=== PATIENT | female | born 1990 | race Caucasian/White ===

== ENCOUNTER 2016-10-20 06:47 | Emergency (ER) | payer OTHER ==
--- NOTE | 2016-10-20 08:28 | ED NURSING NOTES ---
Clinical Report - Nurses Located Within [facility] [address] [place] [address] 10/20/2016 6:51 Patient: MERISSA ANDERSEN TRIAGE Triage time 06:48. Acuity: LEVEL 3. Chief Complaint: CHEST PAIN and UPPER ABDOMINAL PAIN and SHORTNESS OF BREATH. Alert. No acute distress. --06:56 Gloria Blank R.N. 06:51 10/20/16. BP: 139/70. HR: 75. RR: 16. O2 saturation: 95% on room air. Temp: 97.4 F (oral). Pain level now: 2/10. Pain level at maximum: 10/10. --06:56 Gloria Blank R.N. Weight: 113.3 kg stated. Height/Length: 64 inches Per Patient. BMI: 42.9. --06:53 Gloria Blank R.N. Medications Labetalol HCl Oral (Tablet 100 mg) 1 tablet, 2x a day. --06:54 Gloria Blank R.N. Omeprazole Oral 20 mg, 2x a day. --06:54 Gloria Blank R.N. Oral. --06:54 Gloria Blank R.N. Iron Oral. --06:54 Gloria Blank R.N. Allergies No Known Drug Allergy. --06:54 Gloria Blank R.N. History Arrived by private vehicle. Historian: patient. Accompanied by family. Primary physician ([facility]). This started today. Onset. (about 1 1/2 hours ago). 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 PAST MEDICAL HX: Immunizations: up-to-date. SOCIAL HX: Never smoker. Occasional alcohol use. No drug use. NUTRITIONAL RISK ASSESSMENT: The nutritional risk assessment revealed no deficiencies. FUNCTIONAL ASSESSMENT: Functional assessment: no impairments noted. --06:56 Gloria Blank R.N. PROBLEMS: Gestational hypertention. Gastroesophageal Reflux Disease. --06:55 Gloria Blank R.N. Interventions ID band on patient. To treatment room. --06:56 Gloria Blank R.N. PHYSICAL ASSESSMENT Ambulatory to room. Patient gowned. GENERAL / NEURO / PSYCH: Alert. Oriented X 4. Appears in no acute distress. RESPIRATORY: Respirations not labored. CVS: Capillary refill less than 2 seconds. SKIN: Skin is warm and dry. --06:56 Gloria Blank R.N. NURSING PROGRESS NOTES Head of bed elevated. Two patient identifiers checked. Call light placed in reach. Side rails up x 1. Bed placed in lowest position. Brakes of bed on. --06:56 Gloria Blank R.N. EKG time: (656). EKG was performed by a tech and shown to the ED physician. --06:56 Gloria Blank R.N. security monitor, pulse oximeter and NIBP monitor placed on patient; monitor alarms on. --06:56 Gloria Blank R.N. 07:20 10/20/2016 Site #1 started via IV in the left antecubital space with an 20g angiocath; one attempt. Blood drawn: rainbow set. Labeled in the presence of the patient and sent to the lab. Saline lock flushed with 10 mL saline (STARTED BY DIOGO RN). --07:45 Clarita iRvera R.N. DISPOSITION / DISCHARGE 08:47 10/20/2016 Site #1 removed upon discharge. Catheter intact. Bandaid applied. --08:48 Clarita Rivera R.N. Departure time: 08:50. Condition at departure: improved. No learning barriers present. Discharge instructions provided and reviewed with the patient and spouse. Patient and spouse verbalized understanding. Written instructions provided in Samoan. The patient was discharged by the physician. She was discharged home and accompanied by spouse. She left the Emergency Department ambulatory and via private vehicle. Spouse driving. FALL RISK ASSESSMENT: Fall risk assessment completed. No fall risk identified. --08:50 Clarita Rivera R.N. 08:47 10/20/16. BP: 140/72. HR: 76. RR: 16. O2 saturation: 96%. Temp: 96.4 F. Pain level now: 0/10. --08:50 Clarita Rivera R.N. Locked/Released at 10/20/2016 19:12 by Clarita Rivera R.N.
--- NOTE | 2016-10-20 08:28 | ED ORDER SUMMARY ---
..... Patient: MERISSA ANDERSEN OrderSheet [facility] VisitID: [id number] [place] [address] 25y, F Registration Date/Time: 10/20/2016 ORDER SHEET Weight: 113.3 kg (stated) Allergies: No Known Drug Allergy GENERAL ORDERS: CBC w Diff Urgent (07:37 10/20/2016 Jane MAX) (Ack 7:39 Diana) (7:44 JBest R.N.) CMP Urgent (07:37 10/20/2016 Jane MAX) (Ack 7:39 Diana) (7:44 JBest R.N.) Lipase Urgent (07:37 10/20/2016 Jane MAX) (Ack 7:39 Diana) (7:44 JBest R.N.) MEDICATION ORDERS: IV FLUIDS: ORDER SHEET NOTES: [Electronically signed by Clarita Rivera R.N. (19:12 10/20/2016)] [Electronically signed by Alia Paul MD (09:58 10/27/2016)] [Electronically locked/signed by Clarita Rivera R.N. (19:12 10/20/2016)]
--- NOTE | 2016-10-20 08:28 | ED ORDER SUMMARY ---
..... Patient: MERISSA ANDERSEN OrderSheet [facility] VisitID: [id number] [place] [address] 25y, F Registration Date/Time: 10/20/2016 ORDER SHEET Weight: 113.3 kg (stated) Allergies: No Known Drug Allergy GENERAL ORDERS: CBC w Diff Urgent (07:37 10/20/2016 Jane MAX) (Ack 7:39 Diana) (7:44 JBest R.N.) CMP Urgent (07:37 10/20/2016 Jane MAX) (Ack 7:39 Diana) (7:44 JBest R.N.) Lipase Urgent (07:37 10/20/2016 Jane MAX) (Ack 7:39 Diana) (7:44 JBest R.N.) MEDICATION ORDERS: IV FLUIDS: ORDER SHEET NOTES: [Electronically signed by Clarita Rivera R.N. (19:12 10/20/2016)] [Electronically signed by Alia Paul MD (09:58 10/27/2016)] [Electronically locked/signed by Clarita Rivera R.N. (19:12 10/20/2016)]
--- NOTE | 2016-10-20 08:28 | ED CLINICAL REPORT ---
Clinical Report - Physicians/Mid Levels [facility] [address] [place] [address] 10/20/2016 6:51 Patient: MERISSA ANDERSEN Time Seen: 07:18. Arrived- By private vehicle. Historian- patient. HISTORY OF PRESENT ILLNESS Chief Complaint: ABDOMINAL PAIN and CHEST PAIN. At its maximum, severity described as moderate. When seen in the E.D., it was gone. Modifying factors- (stretching out worsened; nothing relieved). It is described as "pain". No radiation. It is described as located in the central chest and the epigastric area. This started today and is still present. The patient has had nausea. No loss of appetite, vomiting or diarrhea. Similar symptoms previously: Occasionally. Recent medical care: The patient was seen recently at another facility in a clinic. ( Pt is 3weeks post-.). REVIEW OF SYSTEMS No constipation, black stools, hematemesis, difficulty with urination or pain with urination. No urinary frequency, bloody stools, fever, headache or sore throat. No blurred vision, difficulty breathing, cough, joint pain or skin rash. No chills or back pain. The patient has had chest pain. All systems otherwise negative, except as recorded above. PAST HISTORY Problems: Gestational hypertention. Gastroesophageal Reflux Disease. Additional Surgeries: . Medications: Iron Oral. Oral. Omeprazole Oral 20 mg, 2x a day. Labetalol HCl Oral (Tablet 100 mg) 1 tablet, 2x a day. Allergies: No Known Drug Allergy. SOCIAL HISTORY Never smoker. Occasional alcohol use. No drug use. ADDITIONAL NOTES The nursing notes have been reviewed. PHYSICAL EXAM Vital Signs: 10/20/2016 06:51 BP: 139/70. HR: 75. RR: 16. O2 saturation: 95%. Temp: 97.4 F. Pain level now: 2/10. Have been reviewed and appear to be correct. Appearance: Alert. Oriented X3. No acute distress. Eyes: Pupils equal, round and reactive to light. Eyes normal inspection. ENT: Nose normal. Neck: Normal inspection. CVS: Normal heart rate and rhythm. Heart sounds normal. Pulses normal. Respiratory: No respiratory distress. Breath sounds normal. Abdomen: Soft and nontender. Back: Normal inspection. No CVA tenderness. Skin: Skin warm and dry. Normal skin color. No rash. Normal skin turgor. Extremities: Extremities exhibit normal ROM. No lower extremity edema. Neuro: Oriented X 3. No motor deficit. No sensory deficit. LABS, X-RAYS, AND EKG EKG: EKG time: (0657). No acute process. No acute ischemia. Normal sinus rhythm. Rate: 73. Normal P waves. Normal [place]. Incomplete RBBB. Normal axis. Normal ST and T waves, QT and QTc. Prior EKG unavailable. The study has been interpreted contemporaneously by me. The study has been independently viewed by me. The EKG appears to be a good tracing. I agree with and confirm the computer reading of the EKG. Laboratory Tests: CBC w Diff: (TOM: 10/20/2016 07:00) ( MsgRcvd 10/20/2016 08:22) Final results Test Result Flag Units (Reference) WHITE BLOOD COUNT 13.4 H K/uL (4.5-11.5) MANUAL DIFFERENTIAL TO FOLLOW. RED BLOOD COUNT 4.60 M/uL (4.00-5.20) HEMOGLOBIN 12.0 gm/dL (12.0-16.0) HEMATOCRIT 37.3 % (36.0-46.0) MEAN CELL VOLUME 81 fL (80-100) MEAN CORPUSCULAR HGB 26 pg (26-34) MEAN CORPUSCULAR HGB CONC 32 g/dL (31-37) RED CELL DISTRIBUTION WIDTH 13.9 % (11.6-14.8) PLATELET COUNT 336 K/uL (150-400) POLY % 57 % (50-75) BAND % 1 % (0-8) LYMPH 39 % (25-40) MONO 2 L % (3-14) EOSINOPHIL % 1 % (0-4) BASOPHIL % 0 % (0-2) METAMYELOCYTE % 0 % (0-1) MYELOCYTE 0 % (0-1) OTHER CELL TYPE 0 RBC MORPHOLOGY NORMAL OCT COMMENT . ATYPICAL LYMPHOCYTES CMP: (TOM: 10/20/2016 07:00) ( MsgRcvd 10/20/2016 08:05) Final results Test Result Flag Units (Reference) GLUCOSE 101 mg/dL (70-110) BUN 9 mg/dL (7-18) CREATININE 0.8 mg/dL (0.6-1.3) Estimated GFR >60 mL/min Estimated GFR- >60 mL/min Note: Persistent reduction over 3 months in eGFR<60 mL/min/1.73 m2 defines CKD. Patients with eGFR values>=60 mL/min/1.73 m2 may also have CKD if evidence ofpersistent proteinuria. Additional information may be foundat www.kidney.org. SODIUM 139 mmol/L (136-145) POTASSIUM 4.0 mmol/L (3.5-5.1) CHLORIDE 102 mmol/L (98-107) CARBON DIOXIDE 26 mmol/L (21-32) CALCIUM 9.6 mg/dL (8.5-10.1) TOTAL PROTEIN 8.4 H g/dL (6.4-8.2) ALBUMIN 4.0 g/dL (3.3-5.0) BILIRUBIN, TOTAL 0.3 mg/dL (0.0-1.0) ALKALINE PHOSPHATASE 128 H U/L (46-116) AST (SGOT) 46 H U/L (15-37) ALT (SGPT) 53 U/L (12-78) LIPASE 104 U/L (73-393) . Pulse Oximetry: 10/20/2016 06:51 O2 saturation: 95%. (FIO2 - room air). Interpretation: normal. PROGRESS AND PROCEDURES Course of Care: PT's sx had resolved upon arrival in the ED, and she declined medication. Labs and EKG were unremarkable. No emergent condition identified. Patient counseled in person regarding the patient's stable condition, test results, diagnosis and need for follow-up. Concerns were addressed. Old medical records reviewed. Disposition: Discharged. Condition: stable. CLINICAL IMPRESSION Acute epigastric abdominal pain. Chest pain .12 lead EKG performed. No precordial pain. INSTRUCTIONS Drink plenty of fluids. (Your labs and EKG look great. There is no sign of a serious cause of your pain.). Warnings: GENERAL WARNINGS: Return or contact your physician immediately if your condition worsens or changes unexpectedly, if not improving as expected, or if other problems arise. Your Current Medications: CONTINUE TAKING THE FOLLOWING MEDICATIONS: Iron Oral. Labetalol HCl Oral : Tablet 100 mg, 1 tablet 2x a day. Omeprazole Oral : 20 mg 2x a day. Oral. Follow-up: Follow up with your doctor in three days if not better. Understanding of the discharge instructions verbalized by patient. (Electronically signed by Alia Paul MD 10/27/2016 9:58)
--- NOTE | 2016-10-20 08:28 | ED NURSING NOTES ---
Clinical Report - Nurses [facility] [address] [place] [address] 10/20/2016 6:51 Patient: MERISSA ANDERSEN TRIAGE Triage time 06:48. Acuity: LEVEL 3. Chief Complaint: CHEST PAIN and UPPER ABDOMINAL PAIN and SHORTNESS OF BREATH. Alert. No acute distress. --06:56 Gloria Blank R.N. 06:51 10/20/16. BP: 139/70. HR: 75. RR: 16. O2 saturation: 95% on room air. Temp: 97.4 F (oral). Pain level now: 2/10. Pain level at maximum: 10/10. --06:56 Gloria Blank R.N. Weight: 113.3 kg stated. Height/Length: 64 inches Per Patient. BMI: 42.9. --06:53 Gloria Blank R.N. Medications Labetalol HCl Oral (Tablet 100 mg) 1 tablet, 2x a day. --06:54 Gloria Blank R.N. Omeprazole Oral 20 mg, 2x a day. --06:54 Gloria Blank R.N. Oral. --06:54 Gloria Blank R.N. Iron Oral. --06:54 Gloria Blank R.N. Allergies No Known Drug Allergy. --06:54 Gloria Blank R.N. History Arrived by private vehicle. Historian: patient. Accompanied by family. Primary physician ([facility]). This started today. Onset. (about 1 1/2 hours ago). 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 PAST MEDICAL HX: Immunizations: up-to-date. SOCIAL HX: Never smoker. Occasional alcohol use. No drug use. NUTRITIONAL RISK ASSESSMENT: The nutritional risk assessment revealed no deficiencies. FUNCTIONAL ASSESSMENT: Functional assessment: no impairments noted. --06:56 Gloria Blank R.N. PROBLEMS: Gestational hypertention. Gastroesophageal Reflux Disease. --06:55 Gloria Blank R.N. Interventions ID band on patient. To treatment room. --06:56 Gloria Blank R.N. PHYSICAL ASSESSMENT Ambulatory to room. Patient gowned. GENERAL / NEURO / PSYCH: Alert. Oriented X 4. Appears in no acute distress. RESPIRATORY: Respirations not labored. CVS: Capillary refill less than 2 seconds. SKIN: Skin is warm and dry. --06:56 Gloria Blank R.N. NURSING PROGRESS NOTES Head of bed elevated. Two patient identifiers checked. Call light placed in reach. Side rails up x 1. Bed placed in lowest position. Brakes of bed on. --06:56 Gloria Blank R.N. EKG time: (656). EKG was performed by a tech and shown to the ED physician. --06:56 Gloria Blank R.N. 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 --06:56 Gloria Blank R.N. 07:20 10/20/2016 Site #1 started via IV in the left antecubital space with an 20g angiocath; one attempt. Blood drawn: rainbow set. Labeled in the presence of the patient and sent to the lab. Saline lock flushed with 10 mL saline (STARTED BY DIOGO RN). --07:45 Clarita Rivera R.N. DISPOSITION / DISCHARGE 08:47 10/20/2016 Site #1 removed upon discharge. Catheter intact. Bandaid applied. --08:48 Clarita Rivera R.N. Departure time: 08:50. Condition at departure: improved. No learning barriers present. Discharge instructions provided and reviewed with the patient and spouse. Patient and spouse verbalized understanding. Written instructions provided in Mozambican. The patient was discharged by the physician. She was discharged home and accompanied by spouse. She left the Emergency Department ambulatory and via private vehicle. Spouse driving. FALL RISK ASSESSMENT: Fall risk assessment completed. No fall risk identified. --08:50 Clarita Rivera R.N. 08:47 10/20/16. BP: 140/72. HR: 76. RR: 16. O2 saturation: 96%. Temp: 96.4 F. Pain level now: 0/10. --08:50 Clarita Rivera R.N. Locked/Released at 10/20/2016 19:12 by Clarita Rivera R.N.
--- NOTE | 2016-10-27 09:58 | ED MED RECONCILIATION SUMMARY ---
Patient: MERISSA ANDERSEN Medication Reconciliation Report [facility] VisitID: [id number] [address] [place] [address] 25y, F Registration Date/Time: 10/20/2016 Weight: 113.3 kg Height/Length: 64 in. BMI: 42.9 ALLERGIES: No Known Drug Allergy The patient's Home Medications are listed below: CONTINUE TAKING THE FOLLOWING MEDICATIONS: Iron Oral Labetalol HCl Oral (100 mg) 1 tablet, 2x a day Omeprazole Oral 20 mg, 2x a day Oral The source(s) of the original Home Medication information: Not obtained. The following Medications were given to the patient in the Emergency Department: None. The following Medications were prescribed to the patient: None.
--- NOTE | 2016-10-27 09:58 | ED MAR SUMMARY ---
..... Medication Administration Record [facility] [address] [place], [place] [id number] Patient: MERISSA ANDERSEN Visit ID: [id number] 25y, F Weight: 113.3 kg Height/Length: 64 in BMI: 42.9 ALLERGIES: No Known Drug Allergy
--- NOTE | 2016-10-27 09:58 | ED MED RECONCILIATION SUMMARY ---
Patient: MERISSA ANDERSEN Medication Reconciliation Report [facility] VisitID: [id number] [address] [place] [address] 25y, F Registration Date/Time: 10/20/2016 Weight: 113.3 kg Height/Length: 64 in. BMI: 42.9 ALLERGIES: No Known Drug Allergy The patient's Home Medications are listed below: CONTINUE TAKING THE FOLLOWING MEDICATIONS: Iron Oral Labetalol HCl Oral (100 mg) 1 tablet, 2x a day Omeprazole Oral 20 mg, 2x a day Oral The source(s) of the original Home Medication information: Not obtained. The following Medications were given to the patient in the Emergency Department: None. The following Medications were prescribed to the patient: None.
--- NOTE | 2016-10-27 09:58 | ED MAR SUMMARY ---
..... Medication Administration Record [facility] [address] [place], [place] [id number] Patient: MERISSA ANDERSEN Visit ID: [id number] 25y, F Weight: 113.3 kg Height/Length: 64 in BMI: 42.9 ALLERGIES: No Known Drug Allergy
--- NOTE | 2016-10-27 09:58 | ED DISCHARGE INSTRUCTIONS ---
Patient: MERISSA ANDERSEN General Instructions [facility] VisitID: [id number] [place] [address] 25y, F Registration Date/Time: 10/20/2016 Acute epigastric abdominal pain. Chest pain .12 lead EKG performed. No precordial pain. INSTRUCTIONS Drink plenty of fluids. (Your labs and EKG look great. There is no sign of a serious cause of your pain.). Warnings: GENERAL WARNINGS: Return or contact your physician immediately if your condition worsens or changes unexpectedly, if not improving as expected, or if other problems arise. Your Current Medications: CONTINUE TAKING THE FOLLOWING MEDICATIONS: Iron Oral. Labetalol HCl Oral : Tablet 100 mg, 1 tablet 2x a day. Omeprazole Oral : 20 mg 2x a day. Oral. Follow-up: Follow up with your doctor in three days if not better. Understanding of the discharge instructions verbalized by patient. ADDITIONAL INFORMATION Esophageal Spasm The esophagus is a muscular tube that joins your mouth to your stomach. Normal waves of contraction help food move down the esophagus to reach the stomach. Esophageal spasms are abnormal contractions of these muscles. When the muscles are in spasm it may feel like the food is stuck and wont go down. It may cause a feeling of heartburn or a squeezing type of chest pain that can feel just like heart pain (angina). The pain may spread to the neck, arm or back. If you try to swallow more food or liquid during a spasm, it may come back up within seconds. The cause of esophageal spasm is not known but it is more common in people with acid reflux disease (also called "GERD" or "Esophagitis"). Very hot or very cold foods or foods that are not chewed enough before swallowing may trigger an episode. Special tests may be ordered to confirm the diagnosis if there is doubt. Medicine is used to prevent or treat symptoms in most cases. Severe symptoms can be treated with surgery. Home Care: If you are prone to acid reflux and heartburn symptoms, your doctor may prescribe acid-blocking medicine. If not, you can use over the counter medicines as a preventive if you get symptoms often. The following medicines are available without a prescription: Antacids: Neutralize stomach acid. (such as Gaviscon, Mylanta, Tums or Rolaids) Acid-Blockers: Reduce the production of acid in the stomach. (Axid, Pepcid-AC, Tagamet-HB, Zantac, Prilosec-OTC). Learn to recognize if certain foods are causing your spasm and avoid these. Avoid very hot and very cold foods if this is a trigger for you. Eat slowly and chew food well before swallowing. Follow Up with your doctor or as advised by our staff. Get Prompt Medical Attention if any of the following occur: Chest pain or pain in the neck, back, shoulder or arm that does not respond to the treatment recommended Food that feels "stuck" in the esophagus for more than 30 minutes Inability to swallow solid or liquids for more than 30 minutes Symptoms that feel like esophageal spasm but occur with heavy sweating, dizziness, fainting or shortness of breath Change in the usual patterns of your symptoms of esophageal spasm (new pattern of spreading to the neck, back, shoulder or arm; pain that is more severe than usual) You have been given the following additional information: Esophageal Spasm (Electronically signed by Alia Paul MD 10/27/2016 9:58)
== END 2016-10-20 08:44 | disposition home or self-care (01) ==
LOC: ED SRH 06:47
DX: R10.13 Epigastric pain (principal); R07.9 Chest pain, unspecified
CPT/HCPCS: 90100; 91643; 92235; 95059

== ENCOUNTER 2016-12-09 03:26 | Emergency (ER) | payer OTHER ==
--- NOTE | 2016-12-09 05:13 | ED ORDER SUMMARY ---
..... Patient: MERISSA ANDERSEN OrderSheet [facility] VisitID: [id number] [address] [place] [address] 26y, F Registration Date/Time: 12/09/2016 ORDER SHEET Weight: 112.0 kg (stated) Allergies: No Known Drug Allergy GENERAL ORDERS: CBC w Diff Urgent (03:51 12/09/2016 Ky MAX) (Ack 3:56 Yehuda) (6:06 HSoule) CMP Urgent (03:51 12/09/2016 Ky MAX) (Ack 3:56 Yehuda) (6:06 HSoule) UA-Culture if indicated Urgent (03:51 12/09/2016 Ky MAX) (Ack 3:56 Yehuda) (6:06 HSoule) Urine Urgent (03:51 12/09/2016 Ky AMX) (Ack 3:56 Yehuda) (6:06 HSoule) Lipase Urgent (03:51 12/09/2016 Ky MAX) (Ack 3:56 Yehuda) (6:06 HSoule) MEDICATION ORDERS: IV FLUIDS: IV Saline Lock (03:51 12/09/2016 Ky MAX) (3:54 HSoule) Zofran IV 4 mg (NOW) (06:05 12/09/2016 HSoule verbal order read back to Ky MAX) (6:06 HSoule) ORDER SHEET NOTES: [Electronically signed by Aspen Almanza (06:07 12/09/2016)] [Electronically signed by Armando Bhandari MD (10:06 12/11/2016)] [Electronically locked/signed by Aspen Almanza (06:07 12/09/2016)]
--- NOTE | 2016-12-09 05:13 | ED NURSING NOTES ---
Clinical Report - Nurses [facility] [address] [place] [address] 12/09/2016 3:26 Patient: MERISSA ANDERSEN TRIAGE Triage time 03:Dec 09 2016. Acuity: LEVEL 3. Chief Complaint: ABDOMINAL PAIN and VOMITING. SEPSIS SCREEN: Sepsis Screen: negative. Negative (no infection suspected/documented). Heart rate greater than 90. VICK COMA SCORE: [place] Coma Scale: 15- eyes open spontaneously (4); best verbal response- oriented x 4 (5); best motor response- obeys commands (6). --03:34 Aspen Almanza 03:29 12/09/16. BP: 151/74. HR: 101. RR: 18. O2 saturation: 99%. Temp: 98.3 F (oral). Pain level now: 12/30. --03:34 Aspen Almanza. Weight: 112 kg stated. Height/Length: 64 inches Per Patient. BMI: 42.4. --03:33 Aspen Almanza. Medications Omeprazole Oral 20 mg, 2x a day. --03:33 Aspen Almanza Flonase Nasal. --03:33 Aspen Almanza Control Pills. --03:34 Aspen Almanza. Allergies No Known Drug Allergy. --03:34 Aspen Almanza. Medication/allergy information source: the patient. --03:34 Aspen Almanza. History Arrived by private vehicle. Historian: patient. Accompanied by family. Primary physician ([facility]). This started today. ( Patient reports she was here in September and was told that she had esophageal spasm. Tonight she states the pain came on earlier today and has increased. She describes a sharp stabbing pain in her epigastric region that she states, "feels like contractions". She states the pain radiates to the sides of her abdomen.). Last oral intake by patient was (9 pm). PAST MEDICAL HX: Last normal menstrual period- 3 weeks ago. Uses control pills. SOCIAL HX: Never smoker. No alcohol use or drug use. No recent travel. No infectious disease exposure. No known contact with a sick individual. ABUSE ASSESSMENT: No report of abuse. FALL RISK ASSESSMENT: Fall risk assessment completed. No fall risk identified. NUTRITIONAL RISK ASSESSMENT: The nutritional risk assessment revealed no deficiencies. FUNCTIONAL ASSESSMENT: Functional assessment: no impairments noted. LEARNING NEEDS ASSESSMENT: The learning needs assessment revealed no barriers. SKIN INTEGRITY ASSESSMENT: Skin integrity risk assessment completed. No skin integrity risk identified. --03:34 Aspen Almanza. PROBLEMS: Chest Pain. Gestational hypertention. Gastroesophageal Reflux Disease. --03:34 Aspen Almanza Abdominal Pain [RuleOut]. --05:11 Armando Bhandari MD The following entry was modified by Armando Bhandari MD, 05:11 <<STRICKEN ENTRY-- Abdominal Pain. --08:28 Cami Aspen --END STRIKE>>. ADDITIONAL SURGERIES: . --03:34 Aspen Almanza. Interventions ID band on patient. To treatment room. --03:34 Aspen Almanza. PHYSICAL ASSESSMENT Ambulatory to room. GENERAL / NEURO / PSYCH: Alert. Oriented X 4. Appears in pain. RESPIRATORY: Respirations not labored. CVS: Cardiac rhythm: sinus tachycardia; (101). GI / : Abdomen soft. Abdominal tenderness in the right upper quadrant and epigastric area. SKIN: Skin is warm and dry. --03:36 Cami Aspen. NURSING PROGRESS NOTES Pulse oximeter and NIBP monitor placed on patient; monitor alarms on. Patient gowned. Reassurance given to the patient. Two patient identifiers checked. Call light placed in reach. Side rails up x 1. Bed placed in lowest position. Brakes of bed on. Patient ready for evaluation- chart flagged and ED physician notified. --03:36 Cami Aspen Patient ID band checked for patient name and birthdate: patient confirmed. Blood samples drawn from the peripheral IV site by nurse ; labeled in presence of the patient and sent to lab: rainbow set. Additional blood sent to lab. --03:36 Cami Aspen 03:47 12/09/2016 Site #1 started via IV in the left hand with an 20g angiocath, with aseptic technique and good blood return; two attempts. Blood drawn: rainbow set. Labeled in the presence of the patient and sent to the lab. Saline lock flushed with 10 mL saline. --03:47 Sole Chavez 03:50 12/09/2016 Zofran (Ondansetron HCl) IVP 4 mg given over 2 minute(s) via site #1. Allergies verified and confirmed 5 rights. IV patency established. IV site checked: no pain, redness, or swelling. IV flushed thoroughly pre- and post-medication administration. IVP given by RN. --06:06 Aspen Almanza 04:40 12/09/16. BP: 142/60. HR: 80. RR: 20. O2 saturation: 99% on room air. Pain level now: 09/29. --06:07 Aspen Almanza. DISPOSITION / DISCHARGE 05:20 12/09/16. BP: 141/62. HR: 82. RR: 20. O2 saturation: 98% on room air. Temp: 98.6 F (oral). Pain level now: 09/01. --06:04 Aspen Almanza 05:10 12/09/2016 Site #1 removed upon discharge. Catheter intact. Bandaid applied. --06:05 Aspen Almanza 05:30 12/09/16. Condition at departure: stable. The goals identified in the patient's plan of care were met. No learning barriers present. Discharge instructions provided and reviewed with the patient and spouse. Reviewed warnings (Do not drive while on sedative medications). Reviewed medication(s) side effects, precautions, dosing and course information. Prescription(s) given to the patient. Patient and spouse verbalized understanding. Written instructions provided in Vietnamese. ( Follow up with your PCP for next available appointment to have your Gallbladder function assessed. In the mean time, avoid greasy fatty goods. Return to the ER if symptoms worsen. Patient verbalized understanding of instructions and had no additional questions at this time.). The patient was discharged by the physician. She was discharged home and accompanied by spouse. She left the Emergency Department ambulatory and via private vehicle. Spouse driving. FALL RISK ASSESSMENT: Fall risk assessment completed. No fall risk identified. --06:04 Aspen Almanza. Locked/Released at 12/09/2016 6:07 by Aspen Almanza,
--- NOTE | 2016-12-09 05:13 | ED ORDER SUMMARY ---
..... Patient: MERISSA ANDERSEN OrderSheet [facility] VisitID: [id number] [address] [place] [address] 26y, F Registration Date/Time: 12/09/2016 ORDER SHEET Weight: 112.0 kg (stated) Allergies: No Known Drug Allergy GENERAL ORDERS: CBC w Diff Urgent (03:51 12/09/2016 Ky MAX) (Ack 3:56 Yehuda) (6:06 HSoule) CMP Urgent (03:51 12/09/2016 Ky MAX) (Ack 3:56 Yehuda) (6:06 HSoule) UA-Culture if indicated Urgent (03:51 12/09/2016 Ky MAX) (Ack 3:56 Yehuda) (6:06 HSoule) Urine Urgent (03:51 12/09/2016 Ky MAX) (Ack 3:56 Yehuda) (6:06 HSoule) Lipase Urgent (03:51 12/09/2016 Ky MAX) (Ack 3:56 Yehuda) (6:06 HSoule) MEDICATION ORDERS: IV FLUIDS: IV Saline Lock (03:51 12/09/2016 Ky MAX) (3:54 HSoule) Zofran IV 4 mg (NOW) (06:05 12/09/2016 HSoule verbal order read back to Ky MAX) (6:06 HSoule) ORDER SHEET NOTES: [Electronically signed by Aspen Almanza (06:07 12/09/2016)] [Electronically signed by Armando Bhandari MD (10:06 12/11/2016)] [Electronically locked/signed by Aspen Almanza (06:07 12/09/2016)]
--- NOTE | 2016-12-09 05:13 | ED CLINICAL REPORT ---
Clinical Report - Physicians/Mid Levels [facility] [address] [place] [address] 12/09/2016 3:26 Patient: MERISSA ANDERSEN Time Seen: 03:43. Arrived- By private vehicle. Historian- patient. HISTORY OF PRESENT ILLNESS Chief Complaint: ABDOMINAL PAIN. It is described as located in the epigastric area and radiating to the upper back. At its maximum, severity described as 7 / 10. When seen in the E.D., severity described as 2 / 10. Modifying factors- worsened by movement. The patient has had nausea and vomiting. The vomiting has occurred only once. No diarrhea. Similar symptoms previously: Once. ( Lasted a few hours then resolved). REVIEW OF SYSTEMS Last normal menstrual period- 3 weeks ago light. Sexual history - sexually active. Uses control pills. No constipation, black stools, difficulty with urination, pain with urination or urinary frequency. No fever, headache, sore throat, blurred vision or chest pain. No difficulty breathing, cough, joint pain, skin rash or chills. Last bowel movement: today. PAST HISTORY PCP: Dr Ari SINGLETON - [facility] Ops: Csection -. Medications: Control Pills. Flonase Nasal. Omeprazole Oral 20 mg, 2x a day. Allergies: No Known Drug Allergy. ADDITIONAL NOTES The nursing notes have been reviewed. PHYSICAL EXAM Vital Signs: 12/09/2016 03:29 BP: 151/74. HR: 101. RR: 18. O2 saturation: 99%. Temp: 98.3 F. Pain level now: 6/10. Appearance: Alert. No acute distress. Eyes: No scleral icterus. ENT: Pharynx normal. CVS: Heart sounds normal. Respiratory: No respiratory distress. Breath sounds normal. Abdomen: Mild tenderness in the upper abdomen and right upper quadrant (to moderate). Bowel sounds normal. Mass present. No rebound tenderness or guarding. (No inguinal or umbilical hernias). Back: No CVA tenderness. Skin: Skin warm. Normal skin color. No rash. Extremities: Extremities exhibit normal ROM. No lower extremity edema. LABS, X-RAYS, AND EKG Laboratory Tests: UA-Culture if indicated: (TOM: 12/09/2016 04:20) ( [facility] [place] 12/09/2016 04:47) Final results Test Result Flag Units (Reference) URINE COLOR YELLOW URINE APPEARANCE CLEAR URINE GLUCOSE NEGATIVE (NEGATIVE) URINE BILIRUBIN NEGATIVE (NEGATIVE) URINE KETONE NEGATIVE (NEGATIVE) URINE SPECIFIC GRAVITY 1.010 (1.010-1.030) URINE PH 6.0 (5.0-8.0) URINE PROTEIN NEGATIVE (NEGATIVE) URINE UROBILINOGEN 0.2 EU/dL (0.2-1.0) URINE NITRITE NEGATIVE (NEGATIVE) URINE BLOOD NEGATIVE (NEGATIVE) URINE LEUK ESTERASE NEGATIVE (NEGATIVE) URINE RBC NONE SEEN rbc/hpf (0-1) URINE WBC RARE wbc/hpf (0-1) URINE EPITHELIAL CELLS 1-3 EPI/hpf (0-5) URINE BACTERIA TRACE (<1+) (NONE SEEN) URINE COMMENT CULT NOT INDICATED URINE CULTURES ARE SET-UP BASED ON THE FOLLOWING CRITERIA:POSITIVE NITRITEPOSITIVE LEUKOCYTE ESTERASEGREATER THAN 10 WHITE BLOOD CELLSMODERATE (2+) OR GREATER BACTERIA Urine: (TOM: 12/09/2016 04:20) ( [facility] 12/09/2016 04:53) Final results Test Result Flag Units (Reference) URINE NEGATIVE CMP: (TOM: 12/09/2016 03:40) ( [facility] 12/09/2016 04:35) Final results Test Result Flag Units (Reference) GLUCOSE 119 H mg/dL (70-110) BUN 12 mg/dL (7-18) CREATININE 0.7 mg/dL (0.6-1.3) Estimated GFR >60 mL/min Estimated GFR- >60 mL/min Note: Persistent reduction over 3 months in eGFR<60 mL/min/1.73 m2 defines CKD. Patients with eGFR values>=60 mL/min/1.73 m2 may also have CKD if evidence ofpersistent proteinuria. Additional information may be foundat www.kidney.org. SODIUM 142 mmol/L (136-145) POTASSIUM 3.7 mmol/L (3.5-5.1) CHLORIDE 107 mmol/L (98-107) CARBON DIOXIDE 23 mmol/L (21-32) CALCIUM 9.1 mg/dL (8.5-10.1) TOTAL PROTEIN 7.7 g/dL (6.4-8.2) ALBUMIN 3.3 g/dL (3.3-5.0) BILIRUBIN, TOTAL 0.2 mg/dL (0.0-1.0) ALKALINE PHOSPHATASE 135 H U/L (46-116) AST (SGOT) 38 H U/L (15-37) ALT (SGPT) 31 U/L (12-78) LIPASE 110 U/L (73-393) . PROGRESS AND PROCEDURES Course of Care: 05:06 12/09/16. Pain 0/10 05:11 12/09/16. Meds ICG. Disposition: Discharged. Condition: stable. CLINICAL IMPRESSION Acute abdominal pain. Probable biliary colic. INSTRUCTIONS (THIS IS VERY LIKELY A GALL BLADDER ATTACK AVOID FATTY FOODS ASK YOUR DR TO CONSIDER A GALL BLADDER ULTRASOUND). Prescription Medications: Oxycodone/APAP 5 mg/325 mg: take 1-2 tablets orally every 4 hours as needed for pain. Dispense ten (10). No refill. Follow-up: Follow up with your doctor. Understanding of the discharge instructions verbalized. (Electronically signed by Armando Bhandari MD 12/11/2016 10:06)
--- NOTE | 2016-12-09 05:13 | ED CLINICAL REPORT ---
Clinical Report - Physicians/Mid Levels Located [facility] [address] [place] [address] 12/09/2016 3:26 Patient: MERISSA ANDERSEN Time Seen: 03:43. Arrived- By private vehicle. Historian- patient. HISTORY OF PRESENT ILLNESS Chief Complaint: ABDOMINAL PAIN. It is described as located in the epigastric area and radiating to the upper back. At its maximum, severity described as 7 / 10. When seen in the E.D., severity described as 2 / 10. Modifying factors- worsened by movement. The patient has had nausea and vomiting. The vomiting has occurred only once. No diarrhea. Similar symptoms previously: Once. ( Lasted a few hours then resolved). REVIEW OF SYSTEMS Last normal menstrual period- 3 weeks ago light. Sexual history - sexually active. Uses control pills. No constipation, black stools, difficulty with urination, pain with urination or urinary frequency. No fever, headache, sore throat, blurred vision or chest pain. No difficulty breathing, cough, joint pain, skin rash or chills. Last bowel movement: today. PAST HISTORY PCP: Dr Ari SINGLETON - [facility] Ops: Csection -. Medications: Control Pills. Flonase Nasal. Omeprazole Oral 20 mg, 2x a day. Allergies: No Known Drug Allergy. ADDITIONAL NOTES The nursing notes have been reviewed. PHYSICAL EXAM Vital Signs: 12/09/2016 03:29 BP: 151/74. HR: 101. RR: 18. O2 saturation: 99%. Temp: 98.3 F. Pain level now: 6/10. Appearance: Alert. No acute distress. Eyes: No scleral icterus. ENT: Pharynx normal. CVS: Heart sounds normal. Respiratory: No respiratory distress. Breath sounds normal. Abdomen: Mild tenderness in the upper abdomen and right upper quadrant (to moderate). Bowel sounds normal. Mass present. No rebound tenderness or guarding. (No inguinal or umbilical hernias). Back: No CVA tenderness. Skin: Skin warm. Normal skin color. No rash. Extremities: Extremities exhibit normal ROM. No lower extremity edema. LABS, X-RAYS, AND EKG Laboratory Tests: UA-Culture if indicated: (TOM: 12/09/2016 04:20) ( [facility] 12/09/2016 04:47) Final results Test Result Flag Units (Reference) URINE COLOR YELLOW URINE APPEARANCE CLEAR URINE GLUCOSE NEGATIVE (NEGATIVE) URINE BILIRUBIN NEGATIVE (NEGATIVE) URINE KETONE NEGATIVE (NEGATIVE) URINE SPECIFIC GRAVITY 1.010 (1.010-1.030) URINE PH 6.0 (5.0-8.0) URINE PROTEIN NEGATIVE (NEGATIVE) URINE UROBILINOGEN 0.2 EU/dL (0.2-1.0) URINE NITRITE NEGATIVE (NEGATIVE) URINE BLOOD NEGATIVE (NEGATIVE) URINE LEUK ESTERASE NEGATIVE (NEGATIVE) URINE RBC NONE SEEN rbc/hpf (0-1) URINE WBC RARE wbc/hpf (0-1) URINE EPITHELIAL CELLS 1-3 EPI/hpf (0-5) URINE BACTERIA TRACE (<1+) (NONE SEEN) URINE COMMENT CULT NOT INDICATED URINE CULTURES ARE SET-UP BASED ON THE FOLLOWING CRITERIA:POSITIVE NITRITEPOSITIVE LEUKOCYTE ESTERASEGREATER THAN 10 WHITE BLOOD CELLSMODERATE (2+) OR GREATER BACTERIA Urine: (TOM: 12/09/2016 04:20) ( [facility] 12/09/2016 04:53) Final results Test Result Flag Units (Reference) URINE NEGATIVE CMP: (TOM: 12/09/2016 03:40) ( [facility] 12/09/2016 04:35) Final results Test Result Flag Units (Reference) GLUCOSE 119 H mg/dL (70-110) BUN 12 mg/dL (7-18) CREATININE 0.7 mg/dL (0.6-1.3) Estimated GFR >60 mL/min Estimated GFR- >60 mL/min Note: Persistent reduction over 3 months in eGFR<60 mL/min/1.73 m2 defines CKD. Patients with eGFR values>=60 mL/min/1.73 m2 may also have CKD if evidence ofpersistent proteinuria. Additional information may be foundat www.kidney.org. SODIUM 142 mmol/L (136-145) POTASSIUM 3.7 mmol/L (3.5-5.1) CHLORIDE 107 mmol/L (98-107) CARBON DIOXIDE 23 mmol/L (21-32) CALCIUM 9.1 mg/dL (8.5-10.1) TOTAL PROTEIN 7.7 g/dL (6.4-8.2) ALBUMIN 3.3 g/dL (3.3-5.0) BILIRUBIN, TOTAL 0.2 mg/dL (0.0-1.0) ALKALINE PHOSPHATASE 135 H U/L (46-116) AST (SGOT) 38 H U/L (15-37) ALT (SGPT) 31 U/L (12-78) LIPASE 110 U/L (73-393) . PROGRESS AND PROCEDURES Course of Care: 05:06 12/09/16. Pain 0/10 05:11 12/09/16. Meds ICG. Disposition: Discharged. Condition: stable. CLINICAL IMPRESSION Acute abdominal pain. Probable biliary colic. INSTRUCTIONS (THIS IS VERY LIKELY A GALL BLADDER ATTACK AVOID FATTY FOODS ASK YOUR DR TO CONSIDER A GALL BLADDER ULTRASOUND). Prescription Medications: Oxycodone/APAP 5 mg/325 mg: take 1-2 tablets orally every 4 hours as needed for pain. Dispense ten (10). No refill. Follow-up: Follow up with your doctor. Understanding of the discharge instructions verbalized. (Electronically signed by Armando Bhandari MD 12/11/2016 10:06)
--- NOTE | 2016-12-09 05:13 | ED NURSING NOTES ---
Clinical Report - Nurses [facility] [address] [place] [address] 12/09/2016 3:26 Patient: MERISSA ANDERSEN TRIAGE Triage time 03:Dec 09 2016. Acuity: LEVEL 3. Chief Complaint: ABDOMINAL PAIN and VOMITING. SEPSIS SCREEN: Sepsis Screen: negative. Negative (no infection suspected/documented). Heart rate greater than 90. VICK COMA SCORE: [place] Coma Scale: 15- eyes open spontaneously (4); best verbal response- oriented x 4 (5); best motor response- obeys commands (6). --03:34 Aspen Almanza 03:29 12/09/16. BP: 151/74. HR: 101. RR: 18. O2 saturation: 99%. Temp: 98.3 F (oral). Pain level now: 12/30. --03:34 Aspen Almanza. Weight: 112 kg stated. Height/Length: 64 inches Per Patient. BMI: 42.4. --03:33 Aspen Almanza. Medications Omeprazole Oral 20 mg, 2x a day. --03:33 Aspen Almanza Flonase Nasal. --03:33 Aspen Almanza Control Pills. --03:34 Aspen Almanza. Allergies No Known Drug Allergy. --03:34 Aspen Almanza. Medication/allergy information source: the patient. --03:34 Aspen Almanza. History Arrived by private vehicle. Historian: patient. Accompanied by family. Primary physician ([facility]). This started today. ( Patient reports she was here in September and was told that she had esophageal spasm. Tonight she states the pain came on earlier today and has increased. She describes a sharp stabbing pain in her epigastric region that she states, "feels like contractions". She states the pain radiates to the sides of her abdomen.). Last oral intake by patient was (9 pm). PAST MEDICAL HX: Last normal menstrual period- 3 weeks ago. Uses control pills. SOCIAL HX: Never smoker. No alcohol use or drug use. No recent travel. No infectious disease exposure. No known contact with a sick individual. ABUSE ASSESSMENT: No report of abuse. FALL RISK ASSESSMENT: Fall risk assessment completed. No fall risk identified. NUTRITIONAL RISK ASSESSMENT: The nutritional risk assessment revealed no deficiencies. FUNCTIONAL ASSESSMENT: Functional assessment: no impairments noted. LEARNING NEEDS ASSESSMENT: The learning needs assessment revealed no barriers. SKIN INTEGRITY ASSESSMENT: Skin integrity risk assessment completed. No skin integrity risk identified. --03:34 Aspen Almanza. PROBLEMS: Chest Pain. Gestational hypertention. Gastroesophageal Reflux Disease. --03:34 Aspen Almanza Abdominal Pain [RuleOut]. --05:11 Armando Bhandari MD The following entry was modified by Armando Bhandari MD, 05:11 <<STRICKEN ENTRY-- Abdominal Pain. --08:28 Cami Aspen --END STRIKE>>. ADDITIONAL SURGERIES: . --03:34 Aspen Almanza. Interventions ID band on patient. To treatment room. --03:34 Aspen Almanza. PHYSICAL ASSESSMENT Ambulatory to room. GENERAL / NEURO / PSYCH: Alert. Oriented X 4. Appears in pain. RESPIRATORY: Respirations not labored. CVS: Cardiac rhythm: sinus tachycardia; (101). GI / : Abdomen soft. Abdominal tenderness in the right upper quadrant and epigastric area. SKIN: Skin is warm and dry. --03:36 Cami Aspen. NURSING PROGRESS NOTES Pulse oximeter and NIBP monitor placed on patient; monitor alarms on. Patient gowned. Reassurance given to the patient. Two patient identifiers checked. Call light placed in reach. Side rails up x 1. Bed placed in lowest position. Brakes of bed on. Patient ready for evaluation- chart flagged and ED physician notified. --03:36 Cami Aspen Patient ID band checked for patient name and birthdate: patient confirmed. Blood samples drawn from the peripheral IV site by nurse ; labeled in presence of the patient and sent to lab: rainbow set. Additional blood sent to lab. --03:36 Cami Aspen 03:47 12/09/2016 Site #1 started via IV in the left hand with an 20g angiocath, with aseptic technique and good blood return; two attempts. Blood drawn: rainbow set. Labeled in the presence of the patient and sent to the lab. Saline lock flushed with 10 mL saline. --03:47 Sole Chavez 03:50 12/09/2016 Zofran (Ondansetron HCl) IVP 4 mg given over 2 minute(s) via site #1. Allergies verified and confirmed 5 rights. IV patency established. IV site checked: no pain, redness, or swelling. IV flushed thoroughly pre- and post-medication administration. IVP given by RN. --06:06 Aspen Almanza 04:40 12/09/16. BP: 142/60. HR: 80. RR: 20. O2 saturation: 99% on room air. Pain level now: 09/29. --06:07 Aspen Almanza. DISPOSITION / DISCHARGE 05:20 12/09/16. BP: 141/62. HR: 82. RR: 20. O2 saturation: 98% on room air. Temp: 98.6 F (oral). Pain level now: 09/01. --06:04 Aspen Almanza 05:10 12/09/2016 Site #1 removed upon discharge. Catheter intact. Bandaid applied. --06:05 Aspen Almanza 05:30 12/09/16. Condition at departure: stable. The goals identified in the patient's plan of care were met. No learning barriers present. Discharge instructions provided and reviewed with the patient and spouse. Reviewed warnings (Do not drive while on sedative medications). Reviewed medication(s) side effects, precautions, dosing and course information. Prescription(s) given to the patient. Patient and spouse verbalized understanding. Written instructions provided in Faroese. ( Follow up with your PCP for next available appointment to have your Gallbladder function assessed. In the mean time, avoid greasy fatty goods. Return to the ER if symptoms worsen. Patient verbalized understanding of instructions and had no additional questions at this time.). The patient was discharged by the physician. She was discharged home and accompanied by spouse. She left the Emergency Department ambulatory and via private vehicle. Spouse driving. FALL RISK ASSESSMENT: Fall risk assessment completed. No fall risk identified. --06:04 Aspen Almanza. Locked/Released at 12/09/2016 6:07 by Aspen Almanza,
--- NOTE | 2016-12-11 10:06 | ED MAR SUMMARY ---
..... Medication Administration Record [facility] [address] [place] [address] Patient: MERISSA ANDERSEN Visit ID: [id number] 26y, F Weight: 112.0 kg Height/Length: 64 in BMI: 42.4 ALLERGIES: No Known Drug Allergy Given 03:50 12/09/2016 Aspen Almanza, Medication Administered: ZOFRAN [IVP] (ONDANSETRON HCL), Dose: 4 mg IVP over 2 minute(s), Site: #1 left hand. Medication Ordered: Zofran IV 4 mg (NOW).
--- NOTE | 2016-12-11 10:06 | ED MED RECONCILIATION SUMMARY ---
Patient: MERISSA ANDERSEN Medication Reconciliation Report [facility] VisitID: [id number] [address] [place] [address] 26y, F Registration Date/Time: 12/09/2016 Weight: 112.0 kg Height/Length: 64 in. BMI: 42.4 ALLERGIES: No Known Drug Allergy The patient's Home Medications are listed below: THE FOLLOWING MEDICATIONS NEED TO BE RECONCILED: Control Pills Flonase Nasal Omeprazole Oral 20 mg, 2x a day The source(s) of the original Home Medication information: patient The following Medications were given to the patient in the Emergency Department: Zofran [IVP] IVP 4 mg, administered: 12/09/2016 3:50:00 AM The following Medications were prescribed to the patient: Oxycodone/APAP 5 mg/325 mg: take 1-2 tablets orally every 4 hours as needed for pain. Dispense ten (10). No refill. -- Armando Bhandari MD
--- NOTE | 2016-12-11 10:06 | ED MED RECONCILIATION SUMMARY ---
Patient: MERISSA ANDERSEN Medication Reconciliation Report [facility] VisitID: [id number] [address] [place] [address] 26y, F Registration Date/Time: 12/09/2016 Weight: 112.0 kg Height/Length: 64 in. BMI: 42.4 ALLERGIES: No Known Drug Allergy The patient's Home Medications are listed below: THE FOLLOWING MEDICATIONS NEED TO BE RECONCILED: Control Pills Flonase Nasal Omeprazole Oral 20 mg, 2x a day The source(s) of the original Home Medication information: patient The following Medications were given to the patient in the Emergency Department: Zofran [IVP] IVP 4 mg, administered: 12/09/2016 3:50:00 AM The following Medications were prescribed to the patient: Oxycodone/APAP 5 mg/325 mg: take 1-2 tablets orally every 4 hours as needed for pain. Dispense ten (10). No refill. -- Armando Bhandari MD
--- NOTE | 2016-12-11 10:06 | ED DISCHARGE INSTRUCTIONS ---
Patient: MERISSA ANDERSEN General Instructions [facility] VisitID: [id number] [address] [place] [address] 26y, F Registration Date/Time: 12/09/2016 Acute abdominal pain. Probable biliary colic. INSTRUCTIONS (THIS IS VERY LIKELY A GALL BLADDER ATTACK AVOID FATTY FOODS ASK YOUR DR TO CONSIDER A GALL BLADDER ULTRASOUND). Prescription Medications: Oxycodone/APAP 5 mg/325 mg: take 1-2 tablets orally every 4 hours as needed for pain. Dispense ten (10). No refill. Follow-up: Follow up with your doctor. Understanding of the discharge instructions verbalized. ADDITIONAL INFORMATION Possible Gallstone With Biliary Colic [Presumed] Your doctor suspects that your abdominal pain is due to spasm of the gallbladder with gallstones. The gallbladder is a small sack under the liver which stores and releases bile. Bile is a fluid that aids in the digestion of fat. A gallstone may form in this sack and block the flow of bile fluid. This can cause mild to severe cramping pain in the mid or right upper abdomen with nausea and vomiting. To be more certain of the diagnosis, you may need to have an ultrasound, CT-scan or other special test. Home Care: Rest in bed and follow a clear liquid diet until feeling better. If pain or nausea medicine was given to help with your symptoms, take these as directed. Fat in your diet makes the gallbladder contract and may cause increased pain. Therefore, avoid fat in your diet over the next two days and follow a low-fat diet after that. If you are overweight, a low fat diet will help you lose weight. Follow Up if a test was already scheduled for you, keep this appointment. Be sure you know how to prepare yourself for the test. Usually, you will be asked not to eat or drink anything for at least 8 hours before the test. Schedule an appointment with your own doctor after your test is complete to discuss the findings. Get Prompt Medical Attention if any of the following occur: Pain gets worse or moves to the right lower abdomen Repeated vomiting Swelling of the abdomen Pain lasts over 6 hours Fever of 100.4 F (38 C) or higher, or as directed by your healthcare provider Weakness, dizziness or fainting Dark urine or light colored stools Yellow color of the skin or eyes Chest, arm, back, neck or jaw pain Oxycodone Hydrochloride, Acetaminophen Oral tablet What is this medicine? ACETAMINOPHEN; OXYCODONE (a set a BIBI sergio fen; ox i KOE done) is a pain reliever. It is used to treat mild to moderate pain. How should I use this medicine? Take this medicine by mouth with a full glass of water. Follow the directions on the prescription label. Take your medicine at regular intervals. Do not take your medicine more often than directed. Talk to your prep cook regarding the use of this medicine in children. Special care may be needed. Patients over 65 years old may have a stronger reaction and need a smaller dose. What side effects may I notice from receiving this medicine? Side effects that you should report to your doctor or health critical care physician assistant as soon as possible: allergic reactions like skin rash, itching or hives, swelling of the face, lips, or tongue breathing difficulties, wheezing confusion light headedness or fainting spells severe stomach pain yellowing of the skin or the whites of the eyes Side effects that usually do not require medical attention (report to your doctor or health critical care physician assistant if they continue or are bothersome): dizziness drowsiness nausea vomiting What may interact with this medicine? alcohol antihistamines barbiturates like amobarbital, butalbital, butabarbital, methohexital, pentobarbital, phenobarbital, thiopental, and secobarbital benztropine drugs for bladder problems like solifenacin, trospium, oxybutynin, tolterodine, hyoscyamine, and methscopolamine drugs for breathing problems like ipratropium and tiotropium drugs for certain stomach or intestine problems like propantheline, homatropine methylbromide, glycopyrrolate, atropine, belladonna, and dicyclomine general anesthetics like etomidate, ketamine, nitrous oxide, propofol, desflurane, enflurane, halothane, isoflurane, and sevoflurane medicines for depression, anxiety, or psychotic disturbances medicines for sleep muscle relaxants naltrexone narcotic medicines (opiates) for pain phenothiazines like perphenazine, thioridazine, chlorpromazine, mesoridazine, fluphenazine, prochlorperazine, promazine, and trifluoperazine scopolamine tramadol trihexyphenidyl What if I miss a dose? If you miss a dose, take it as soon as you can. If it is almost time for your next dose, take only that dose. Do not take double or extra doses. Where should I keep my medicine? Keep out of the reach of children. This medicine can be abused. Keep your medicine in a safe place to protect it from theft. Do not share this medicine with anyone. Selling or giving away this medicine is dangerous and against the law. Store at room temperature between 20 and 25 degrees C (68 and 77 degrees F). Keep container tightly closed. Protect from light. This medicine may cause accidental overdose and if it is taken by other adults, children, or pets. Flush any unused medicine down the toilet to reduce the chance of harm. Do not use the medicine after the expiration date. What should I tell my health care provider before I take this medicine? They need to know if you have any of these conditions: brain tumor Crohn's disease, inflammatory bowel disease, or ulcerative colitis drink more than 3 alcohol containing drinks per day drug abuse or addiction head injury heart or circulation problems kidney disease or problems going to the bathroom liver disease lung disease, asthma, or breathing problems an unusual or allergic reaction to acetaminophen, oxycodone, other opioid analgesics, other medicines, foods, dyes, or preservatives or trying to get breast-feeding What should I watch for while using this medicine? Tell your doctor or health critical care physician assistant if your pain does not go away, if it gets worse, or if you have new or a different type of pain. You may develop tolerance to the medicine. Tolerance means that you will need a higher dose of the medication for pain relief. Tolerance is normal and is expected if you take this medicine for a long time. Do not suddenly stop taking your medicine because you may develop a severe reaction. Your body becomes used to the medicine. This does NOT mean you are addicted. Addiction is a behavior related to getting and using a drug for a non-medical reason. If you have pain, you have a medical reason to take pain medicine. Your doctor will tell you how much medicine to take. If your doctor wants you to stop the medicine, the dose will be slowly lowered over time to avoid any side effects. You may get drowsy or dizzy. Do not drive, use machinery, or do anything that needs mental alertness until you know how this medicine affects you. Do not stand or sit up quickly, especially if you are an older patient. This reduces the risk of dizzy or fainting spells. Alcohol may interfere with the effect of this medicine. Avoid alcoholic drinks. There are different types of narcotic medicines (opiates) for pain. If you take more than one type at the same time, you may have more side effects. Give your health care provider a list of all medicines you use. Your doctor will tell you how much medicine to take. Do not take more medicine than directed. Call emergency for help if you have problems breathing. The medicine will cause constipation. Try to have a bowel movement at least every 2 to 3 days. If you do not have a bowel movement for 3 days, call your doctor or health critical care physician assistant. Do not take Tylenol (acetaminophen) or medicines that have acetaminophen with this medicine. Too much acetaminophen can be very dangerous. Many nonprescription medicines contain acetaminophen. Always read the labels carefully to avoid taking more acetaminophen. You have been given the following additional information: Biliary Colic With Gallstone (Presumed) Oxycodone Hydrochloride, Acetaminophen Oral tablet (Electronically signed by Armando Bhandari MD 12/11/2016 10:06)
--- NOTE | 2016-12-11 10:06 | ED MAR SUMMARY ---
..... Medication Administration Record [facility] [address] [place] [address] Patient: MERISSA ANDERSEN Visit ID: [id number] 26y, F Weight: 112.0 kg Height/Length: 64 in BMI: 42.4 ALLERGIES: No Known Drug Allergy Given 03:50 12/09/2016 Aspen Almanza, Medication Administered: ZOFRAN [IVP] (ONDANSETRON HCL), Dose: 4 mg IVP over 2 minute(s), Site: #1 left hand. Medication Ordered: Zofran IV 4 mg (NOW).
== END 2016-12-09 05:20 | disposition home or self-care (01) ==
LOC: ED SRH 03:26
DX: R10.13 Epigastric pain (principal); Z79.899 Other long term (current) drug therapy
CPT/HCPCS: 90004; 90100; 92235; 93070; 95059